=== PATIENT | female | born 1990 | race American Indian/Alaskan Native ===

== ENCOUNTER 2016-06-22 13:34 | Emergency (ER) | payer SELFPAY ==
[2016-06-22 14:02] VITALS: TEMP 98; BMI 33.5
[2016-06-22] MEDS ORDERED: Sodium Chloride 0.9% 1,000 ML IV STA (14:07)
[2016-06-22 14:14] LABS: URINE BILIRUBIN NEGATIVE (NEGATIVE); URINE BLOOD NEGATIVE (NEGATIVE); URINE GLUCOSE (UA) NEGATIVE (NEGATIVE); URINE KETONE NEGATIVE (NEGATIVE); URINE LEUKOCYTE ESTERASE NEGATIVE Leu/uL (NEGATIVE); URINE PROTEIN 30 mg/dL (<30 mg/dL); URINE UROBILINOGEN 0.2 E.U./dL (<1 E.U./dL)
[2016-06-22 14:21] LABS: URINE APPEARANCE CLEAR (CLEAR); URINE COLOR YELLOW (YELLOW)
[2016-06-22 14:43] LABS: URINE RBC 0 - 2 /hpf (0-2); URINE WBC 0 - 2 /hpf (0-6)
--- NOTE | 2016-06-22 14:54 | ED PDOC ---
Arrival/HPI - General Chief Complaint: Female Genitourinary Time Seen by Provider: 06/22/16 13:58 Historian: Patient - History of Present Illness Narrative History of Present Illness (Text): 06/22/16 15:45 Sonya Giang is a 25 year old female who presents to the ED complaining of suprapubic pain/left groin pain. Patient was able to eat with no issues this morning. Patient denies any history of ectopic pregnancies or complication with previous pregnancies. Patient otherwise denies any fever, chills, chest pain, shortness of breath, nausea, vomiting, diarrhea, urinary symptoms, vaginal discharge/bleeding, back pain, neck pain, headache, dizziness, or any other complaints. P:3 A:3 LNMP: April 13 PMD: None Time/Duration: 24 hours Symptom Onset: Gradual Symptom Course: Unchanged Activities at Onset: Light Context: Home Past Medical History - Provider Review Nursing Documentation Reviewed: Yes - Infectious Disease Hx of Infectious Diseases: None - Cardiac Hx Heart Murmur: Yes - Pulmonary Hx Respiratory Disorders: No - Neurological Hx Neurological Disorder: No - HEENT Hx HEENT Disorder: No - Renal Hx Renal Disorder: No - Endocrine/Metabolic Hx Endocrine Disorders: No - Hematological/Oncological Hx Blood Disorders: No - Integumentary Hx Dermatological Disorder: No - Musculoskeletal/Rheumatological Hx Musculoskeletal Disorders: No - Gastrointestinal Hx Gastrointestinal Disorders: No - Genitourinary/Gynecological Hx Genitourinary Disorders: No - Psychiatric Hx Anxiety: Yes Hx Substance Use: No - Surgical History Hx Section: Yes - Anesthesia Hx Anesthesia: Yes Family/Social History - Physician Review Nursing Documentation Reviewed: Yes Family/Social History: No Known Family HX Smoking Status: Light Smoker < 10 Cigarettes Daily Hx Alcohol Use: Yes Hx Substance Use: No Allergies/Home Meds Allergies/Adverse Reactions: Allergies No Known Allergies Allergy (Verified 06/24/15 00:49) Review of Systems - Physician Review All systems were reviewed & negative as marked: Yes - Review of Systems Constitutional: Normal. absent: Fevers Eyes: Normal ENT: Normal Respiratory: Normal. absent: SOB, Cough Cardiovascular: Normal Gastrointestinal: Normal. absent: Abdominal Pain, Diarrhea, Nausea, Vomiting Genitourinary Female: Normal. absent: Dysuria, Frequency, Hematuria, Urine Output Changes, Vaginal Bleeding, Vaginal Discharge Musculoskeletal: Normal. absent: Back Pain, Neck Pain Skin: Normal Neurological: Normal. absent: Headache, Dizziness Endocrine: Normal Hemo/Lymphatic: Normal Psychiatric: Normal Physical Exam Vital Signs Reviewed: Yes Vital Signs Temp Pulse Resp BP Pulse Ox 06/22/16 16:49 91 H 18 124/69 100 06/22/16 15:57 105 H 20 126/73 100 06/22/16 14:01 98.0 F 105 H 20 126/85 99 Temperature: Afebrile Blood Pressure: Normal Pulse: Tachycardic Respiratory Rate: Normal Appearance: Positive for: Well-Appearing, Non-Toxic, Comfortable Pain Distress: None Mental Status: Positive for: Alert and Oriented X 3 - Systems Exam Head: Present: Atraumatic, Normocephalic Pupils: Present: PERRL Extroacular Muscles: Present: EOMI Conjunctiva: Present: Normal Mouth: Present: Moist Mucous Membranes Neck: Present: Normal Range of Motion Respiratory/Chest: Present: Clear to Auscultation, Good Air Exchange. No: Respiratory Distress, Accessory Muscle Use Cardiovascular: Present: Regular Rate and Rhythm, Normal S1, S2. No: Murmurs Abdomen: Present: Normal Bowel Sounds. No: Tenderness, Distention, Peritoneal Signs Back: Present: Normal Inspection Upper Extremity: Present: Normal Inspection. No: Cyanosis, Edema Lower Extremity: Present: Normal Inspection. No: Edema Neurological: Present: GCS=15, CN II-XII Intact, Speech Normal Skin: Present: Warm, Dry, Normal Color. No: Rashes Psychiatric: Present: Alert, Oriented x 3, Normal Insight, Normal Concentration Medical Decision Making ED Course and Treatment: 06/22/16 13:58 Impression: 25 year old female complaining of suprapubic/left groin pain. Plan: -- Transvaginal US -- Urine Cultures -- Labs -- IV Fluids -- Reassess and disposition Prior Visits: Notes and results from previous visits were reviewed. Patient was last seen in the ED on 06/24/15 for a headache. Progress Notes: 06/22/16 15:57 Procedure: Transvaginal pelvic ultrasound. Dictator: Radha Rogers MD Impression: No evidence of intrauterine gestational sac. If indeed the patient is based on serum beta HCG values, the sonographic findings represent either: Very early IUP; embryonic demise; ectopic gestation. Follow-up with serial quantitative serum beta HCG measurements and post OBGYN follow-up is mandatory, since ectopic gestation cannot be excluded based only on sonographic findings. Right adnexal free fluid. - Lab Interpretations Lab Results: 06/22/16 16:15 06/22/16 16:15 Lab Results 06/22/16 16:15: WBC 8.0, RBC 4.55, Hgb 11.9 L, Hct 36.7, MCV 80.7, MCH 26.2, MCHC 32.4, RDW 13.9, Plt Count 377, MPV 10.0, Gran % 59.5, Lymph % (Auto) 32.2, [place] % (Auto) 7.1 H, Eos % (Auto) 1.0 L, Baso % (Auto) 0.2, Gran # 4.78, Lymph # 2.6, [place] # 0.6, Eos # 0.1, Baso # 0.02, Sodium 135, Potassium 4.0, Chloride 99, Carbon Dioxide 28, Anion Gap 12, BUN 12, Creatinine 0.7, Est GFR ( Amer) > 60, Est GFR (Non-Af Amer) > 60, Random Glucose 90, Calcium 9.4, Total Bilirubin 0.6, AST 32, ALT 12, Alkaline Phosphatase 87, Total Protein 9.6 H, Albumin 4.7, Globulin 4.9, Albumin/Globulin Ratio 1.0 L, Lipase 88, Beta HCG, Quant 106.41 H 06/22/16 04:03: Urine Color Yellow, Urine Appearance Clear, Urine pH 7.0, Ur Specific [place] 1.020, Urine Protein 30 H, Urine Glucose (UA) Negative, Urine Ketones Negative, Urine Blood Negative, Urine Nitrate Negative, Urine Bilirubin Negative, Urine Urobilinogen 0.2, Ur Leukocyte Esterase Negative, Urine RBC 0 - 2, Urine WBC 0 - 2 I have reviewed the lab results: Yes - RAD Interpretation Narrative RAD Interpretations (Text): 06/22/16 15:57 Procedure: Transvaginal pelvic ultrasound. Dictator: Radha Rogers MD Findings: Uterus measures approximately 9.6 x 4.9 cm in sagittal dimension. Anteverted. Endometrium measures approximately 1.2 cm in diameter. No evidence of intrauterine gestational sac. The right ovary measures 2.7 x 1.7 x 1.6 cm. The left ovary measures 2.9 x 2.3 x 1.9 cm. Blood flow was demonstrated to both ovaries. Free fluid noted in the right at adnexa. Impression: No evidence of intrauterine gestational sac. If indeed the patient is based on serum beta HCG values, the sonographic findings represent either: Very early IUP; embryonic demise; ectopic gestation. Follow-up with serial quantitative serum beta HCG measurements and post OBGYN follow-up is mandatory, since ectopic gestation cannot be excluded based only on sonographic findings. Right adnexal free fluid. Radiology Orders: 06/22/16 14:08 TRANSVAGINAL [US] Stat Adjuster Piano Action: Radiologist - Medication Orders Current Medication Orders: Discontinued Medications Sodium Chloride (Sodium Chloride 0.9%) 1,000 mls @ 1,000 mls/hr IV .Q1H STA Stop: 06/22/16 15:06 Last Admin: 06/22/16 16:19 Dose: 1,000 MLS/HR eMAR Start Stop Document 06/22/16 16:19 MMA (Rec: 06/22/16 16:19 [email or web address]) Intravenous Solution Start Date 06/22/16 Start Time 16:19 End Date 06/22/16 End time 17:19 Total Infusion Time 60 - Scribe Statement The provider has reviewed the documentation as recorded by the Torresiblana Marques Provider Attestation: All medical record entries made by the Scribe were at my direction and personally dictated by me. I have reviewed the chart and agree that the record accurately reflects my personal performance of the history, physical exam, medical decision making, and the department course for this patient. I have also personally directed, reviewed, and agree with the discharge instructions and disposition. Disposition/Present on Arrival - Present on Arrival Any Indicators Present on Arrival: No History of DVT/PE: No History of Uncontrolled Diabetes: No Urinary Catheter: No History of Decub. Ulcer: No History Surgical Site Infection Following: None - Disposition Have Diagnosis and Disposition been Completed?: Yes Diagnosis: at early stage Disposition: HOME/ ROUTINE Disposition Time: 17:00 Patient Plan: Discharge Condition: GOOD Discharge Instructions (ExitCare): (ED) Additional Instructions: Thank you for letting us take care of you today. Your provider was Dr. Brenner. You were treated for early . The emergency medical care you received today was directed at your acute symptoms. If you were prescribed any medication, please fill it and take as directed. It may take several days for your symptoms to resolve. Return to the Emergency Department if your symptoms worsen, do not improve, or if you have any other problems. Please contact your doctor or call one of the physicians/clinics you have been referred to that are listed on the Patient Visit Information form that is included in your discharge packet. Bring any paperwork you were given at discharge with you along with any medications you are taking to your follow up visit. Our treatment cannot replace ongoing medical care by a primary care provider (PCP) outside of the emergency department. Thank you for allowing the [facility] team to be part of your care today. Follow up with your [facility] [employer] doctor this week. Prescriptions: Multivit/Folic Acid/I [ Plus] 1 tab PO DAILY #30 tab
[2016-06-22 15:58] VITALS: O2SAT 100
--- NOTE | 2016-06-22 15:58 | US ---
Indication: Rule out ectopic Comparison: None available Technique: Transvaginal pelvic ultrasound. Findings: Uterus measures approximately 9.6 x 4.9 cm in sagittal dimension. Anteverted. Endometrium measures approximately 1.2 cm in diameter. No evidence of intrauterine gestational sac. The right ovary measures 2.7 x 1.7 x 1.6 cm. The left ovary measures 2.9 x 2.3 x 1.9 cm. Blood flow was demonstrated to both ovaries. Free fluid noted in the right at adnexa. Impression: No evidence of intrauterine gestational sac. If indeed the patient is based on serum beta HCG values, the sonographic findings represent either: Very early IUP; embryonic demise; ectopic gestation. Follow-up with serial quantitative serum beta HCG measurements and post OBGYN follow-up is mandatory, since ectopic gestation cannot be excluded based only on sonographic findings. Right adnexal free fluid.
[2016-06-22 16:38] LABS: ADD MANUAL DIFF? NO
[2016-06-22 16:42] LABS: BASO # 0.02 K/mm3 (0.0-2.0); BASO % 0.2 % (0.0-3.0); EOS # 0.1 (0.0-0.7); GRAN # 4.78 (1.4-6.5); GRAN % 59.5 % (50.0-68.0); HEMATOCRIT 36.7 % (36.0-48.0); LYMPH # 2.6 (1.2-3.4); LYMPH % 32.2 % (22.0-35.0); MEAN CELL VOLUME 80.7 fL (80.0-105.0); MEAN CORPUSCULAR HEMOGLOBIN 26.2 pg (25.0-35.0); MEAN CORPUSCULAR HGB CONC 32.4 g/dl (31.0-37.0); MONO # 0.6 (0.1-0.6); MONO % 7.1 % (1.0-6.0); PLATELET COUNT 377 10^3/uL (120.0-450.0); RED CELL DISTRIBUTION WIDTH 13.9 % (11.5-14.5)
[2016-06-22 16:57] LABS: ALKALINE PHOSPHATASE 87 U/L (38-133); ALT/SGPT 12 U/L (7-56); AST/SGOT 32 U/L (15-39); BILIRUBIN,TOTAL 0.6 mg/dL (0.2-1.3); BLOOD UREA NITROGEN 12 mg/dL (7-21); CALCIUM 9.4 mg/dL (8.4-10.5); CARBON DIOXIDE 28 mmol/L (21-33); CHLORIDE 99 mmol/L (98-107); GFR AFRICAN-AMERICAN > 60; GLUCOSE,RANDOM 90 mg/dL (70-110); LIPASE 88 U/L (23-300); SODIUM 135 mmol/L (132-148); TOTAL PROTEIN 9.6 g/dL (5.8-8.3)
[2016-06-22 18:27] VITALS: BP 102/69; PULSE 96; RESP 20
== END 2016-06-22 18:00 | disposition home or self-care (01) ==
LOC: ED 13:34
DX: O26.899 Other specified pregnancy related conditions, unspecified trimester (principal); R10.30 Lower abdominal pain, unspecified
CPT/HCPCS: 76830; 80053; 81001; 83690; 84702; 85025; 87086; 96360; 99283; J7040

== ENCOUNTER 2018-02-01 12:35 | Emergency (ER) | payer MEDICAID ==
[2018-02-01 12:36] VITALS: BMI 33.5
[2018-02-01 12:47] VITALS: BP 149/80; PULSE 99; RESP 18; TEMP 98.7; O2SAT 100
--- NOTE | 2018-02-01 13:01 | ED PDOC ---
Arrival/HPI - General Chief Complaint: Dental Pain Time Seen by Provider: 02/01/18 12:42 Historian: Patient - History of Present Illness Narrative History of Present Illness (Text): 02/01/18 12:54 A 27 year old male, with no significant past medical history, presents to the emergency department complaining of right-side toothache for 2 days. Patient reports she took Tylenol Extra Strength, which gave her no relief, and Motrin 8 00 mg, giving her relief from pain for only 2 hours. Patient denies any fever, or any other complaints at this time. Also, patient mentions taking Aleev medication this morning. No PMD Time/Duration: < week (2 days) Past Medical History - Provider Review Nursing Documentation Reviewed: Yes - Infectious Disease Hx of Infectious Diseases: None - Cardiac Hx Heart Murmur: Yes - Pulmonary Hx Respiratory Disorders: No - Neurological Hx Neurological Disorder: No - HEENT Hx HEENT Disorder: No - Renal Hx Renal Disorder: No - Endocrine/Metabolic Hx Endocrine Disorders: No - Hematological/Oncological Hx Blood Disorders: No - Integumentary Hx Dermatological Disorder: No - Musculoskeletal/Rheumatological Hx Musculoskeletal Disorders: No - Gastrointestinal Hx Gastrointestinal Disorders: No - Genitourinary/Gynecological Hx Genitourinary Disorders: No - Psychiatric Hx Anxiety: Yes Hx Substance Use: No - Surgical History Hx Section: Yes - Anesthesia Hx Anesthesia: Yes Family/Social History - Physician Review Nursing Documentation Reviewed: Yes Family/Social History: No Known Family HX Smoking Status: Light Smoker < 10 Cigarettes Daily Hx Alcohol Use: Yes Hx Substance Use: No Allergies/Home Meds Allergies/Adverse Reactions: Allergies No Known Allergies Allergy (Verified 02/01/18 12:48) Review of Systems - Physician Review All systems were reviewed & negative as marked: Yes - Review of Systems Constitutional: absent: Fevers Musculoskeletal: Other (toothache right side) Physical Exam Vital Signs Reviewed: Yes Vital Signs Temp Pulse Resp BP Pulse Ox 02/01/18 12:44 98.7 F 99 H 18 149/80 100 Temperature: Afebrile Blood Pressure: Normal Pulse: Regular Respiratory Rate: Normal Appearance: Positive for: Well-Appearing, Non-Toxic, Comfortable Pain Distress: None Mental Status: Positive for: Alert and Oriented X 3 - Systems Exam Mouth: No: Normal Teeth (right upper molar multiple cavities) Medical Decision Making ED Course and Treatment: 02/01/18 12:56 Impression: 27 year old female with right-side toothache. Physical exam shows right-upper molar multiple cavities. Plan: -- POC Urine Test -- Toradol -- Amoxicillin -- Reassess and disposition Progress Notes: 02/01/18 14:58 neck supple no buccal swelling advise outpt fu. - Scribe Statement The provider has reviewed the documentation as recorded by the Carole Bland Provider Scribe Attestation: All medical record entries made by the Torresiblana were at my direction and personally dictated by me. I have reviewed the chart and agree that the record accurately reflects my personal performance of the history, physical exam, medical decision making, and the department course for this patient. I have also personally directed, reviewed, and agree with the discharge instructions and disposition. Disposition/Present on Arrival - Present on Arrival Any Indicators Present on Arrival: No History of DVT/PE: No History of Uncontrolled Diabetes: No Urinary Catheter: No History of Decub. Ulcer: No History Surgical Site Infection Following: None - Disposition Have Diagnosis and Disposition been Completed?: Yes Diagnosis: Toothache Disposition: HOME/ ROUTINE Disposition Time: 12:00 Condition: STABLE Discharge Instructions (ExitCare): Dental Pain Additional Instructions: please see dentist. return to er with worseing symptomsor concerns. Prescriptions: RX: Amoxicillin 500 mg PO TID #30 tab RX: Naproxen 500 mg PO BID PRN #14 tablet PRN Reason: Pain, Mild (1-3) Forms: [facility] ([place])
== END 2018-02-01 13:40 | disposition home or self-care (01) ==
LOC: ED 12:35
DX: K08.89 Other specified disorders of teeth and supporting structures (principal); F17.210 Nicotine dependence, cigarettes, uncomplicated
CPT/HCPCS: 96372; 99282; J1885